=== PATIENT | female | born 1995 | race Caucasian/White ===

== ENCOUNTER 2021-08-13 12:46 | Emergency (ER) | payer SELFPAY ==
[~2021-08-13] VITALS: Ht 172.7 cm; Wt 74.4 kg
[~2021-08-13 12:46] MED LIST: HYDR-4353 PO
[2021-08-13 12:55] VITALS: BP 133/91
[2021-08-13] MEDS ORDERED: CYCL-1 PO (13:10)
[2021-08-13] MEDS ORDERED: ONDA4TAB12 PO (13:10)
[2021-08-13] MEDS ORDERED: NAPR-56 PO (13:10)
== END 2021-08-13 13:29 | disposition home or self-care (01) ==
LOC: ER 12:47
DX: S13.4XXA Sprain of ligaments of cervical spine, initial encounter (principal); R51.9 Headache, unspecified; R42 Dizziness and giddiness; V98.8XXA Other specified transport accidents, initial encounter; Y93.89 Activity, other specified; Y92.89 Other specified places as the place of occurrence of the external cause; Y99.8 Other external cause status
CPT/HCPCS: 99283